=== PATIENT | female | born 1980 | race Two or more races ===

== ENCOUNTER 2019-10-06 17:46 | Emergency (ER) | payer SELFPAY ==
--- NOTE | 2019-10-06 17:58 | ER Document Report ---
ED Medical Screen (RME) - General Chief Complaint: Vomiting Stated Complaint: VOMITING Time Seen by Provider: 10/06/19 17:53 Mode of Arrival: Wheelchair Information source: Patient Notes: 38-year-old female presented to ED for complaint of upper abdominal pain nausea and vomiting. Her son states that she has been vomiting constantly for the last hour. She states that everything she is eaten today is come back up. She states the only thing she had to eat today as beans and rice nothing spicy. She states she did have some abdominal pain and feeling hot yesterday. She states she does not smoke drink or use any alcohol. She is alert and oriented but is in a lot of pain with dry heaves at this time. She is also been having some diarrhea 3-4 stools today. I have greeted and performed a rapid initial assessment of this patient. A comprehensive ED assessment and evaluation of the patient, analysis of test results and completion of medical decision making process will be conducted by an additional ED providers. Physical Exam - Vital signs Vitals: Temp Pulse Resp BP Pulse Ox 98 F 89 24 H 149/76 H 100 10/06/19 17:50 10/06/19 17:50 10/06/19 17:50 10/06/19 17:50 10/06/19 17:50 Course - Vital Signs Vital signs: Temp Pulse Resp BP Pulse Ox 98 F 89 24 H 149/76 H 100 10/06/19 17:50 10/06/19 17:50 10/06/19 17:50 10/06/19 17:50 10/06/19 17:50
[2019-10-06] MEDS ORDERED: MORPHINE SULFATE 10 MG/ML INJ IV ONE (17:59)
[2019-10-06] MEDS ORDERED: NORMAL SALINE 1000 ML 1,000 ML IV ONE (17:59)
[2019-10-06] MEDS ORDERED: ONDANSETRON HCL INJ/PF 4 MG/2 ML SDV IV ONE (17:59)
--- NOTE | 2019-10-06 18:09 | ER Document Report ---
ED General - General Chief Complaint: Abdominal Pain Stated Complaint: VOMITING Time Seen by Provider: 10/06/19 17:53 Primary Care Provider: CODIE GRIFFITHS MD [Primary Care Provider] - Follow up as needed Mode of Arrival: Wheelchair Information source: Patient, Relative TRAVEL OUTSIDE OF THE [place] IN LAST 30 DAYS: No - HPI Onset: Other - patient has had abdominal pains for a month but the pain worsened in the last 2 days and is now associated with nausea and vomiting. Onset/Duration: Gradual Quality of pain: Sharp Severity: Severe Pain Level: 5 Associated symptoms: Diarrhea, Nausea, Vomiting Exacerbated by: Food Relieved by: Denies Similar symptoms previously: No Recently seen / treated by doctor: No Notes: 38 year old female with no significant PMH here for abdominal pain, nausea, vomiting, and diarrhea. The patient has been having abdominal pains for about a month but the pains dramatically worsened over the last 2 days and were associated with nausea, vomiting, and diarrhea today. The patient has not seen a doctor in some time and she has never had an abdominal surgery. The patient denies urinary and vaginal symptoms. - Related Data Allergies/Adverse Reactions: No Known Allergies Allergy (Verified 10/06/19 17:55) Home Medications: vitamins. cholesterol. anemia Past Medical History - General Information source: Patient - Social History Smoking Status: Never Smoker Chew tobacco use (# tins/day): No Frequency of alcohol use: None Drug Abuse: None Lives with: Family Family History: Reviewed & Not Pertinent Patient has suicidal ideation: No Patient has homicidal ideation: No Review of Systems - Review of Systems Constitutional: No symptoms reported EENT: No symptoms reported Cardiovascular: No symptoms reported Gastrointestinal: Abdominal pain, Diarrhea, Nausea, Vomiting Genitourinary: No symptoms reported Female Genitourinary: No symptoms reported Musculoskeletal: No symptoms reported Skin: No symptoms reported Hematologic/Lymphatic: No symptoms reported Neurological/Psychological: No symptoms reported -: Yes All other systems reviewed and negative Physical Exam - Vital signs Vitals: Temp Pulse Resp BP Pulse Ox 98 F 89 24 H 149/76 H 100 10/06/19 17:50 10/06/19 17:50 10/06/19 17:50 10/06/19 17:50 10/06/19 17:50 - Notes Notes: GENERAL: ill-appearing and in moderate distress, well-nourished HEAD: Atraumatic, normocephalic. EYES: Pupils equal round and reactive to light, extraocular movements intact, sclera anicteric, conjunctiva are normal. ENT: Nares patent, oropharynx clear without exudates. Moist mucous membranes. NECK: Normal range of motion, supple without lymphadenopathy or JVD. LUNGS: Breath sounds clear to auscultation bilaterally and equal. No wheezes rales or rhonchi. HEART: Regular rate and rhythm without murmurs, rubs or gallops. ABDOMEN: Soft, moderate tenderness throughout but worse in RLQ, normoactive bow el sounds. No guarding, no rebound. No masses appreciated. EXTREMITIES: Normal range of motion, no pitting or edema. No clubbing or cyanosis. NEUROLOGICAL: Cranial nerves II through XII grossly intact. Normal speech, normal gait. PSYCH: Normal mood, normal affect. SKIN: Warm, Dry, normal turgor, no rashes or lesions noted. Course - Re-evaluation Re-evalutation: 10/06/19 20:16 The patient is here for abdominal pain, nausea, vomiting. The patient was treated with fluids, zofran, morphine, dilaudid, toradol. CT scan consistent with a diarrheal illness. Patient likely has a viral syndrome. Will DC on Zofran and [place] and have the patient follow up with a PCP. Strict ER return instructions given if patient worsens. - Vital Signs Vital signs: Temp Pulse Resp BP Pulse Ox 98.3 F 89 20 122/61 100 10/06/19 20:14 10/06/19 20:14 10/06/19 20:14 10/06/19 20:14 10/06/19 20:14 - Laboratory Result Diagrams: 10/06/19 18:27 10/06/19 18:27 Laboratory results interpreted by me: 10/06/19 10/06/19 10/06/19 18:27 18:27 19:10 WBC 14.1 H RDW 14.5 H Lymph % (Auto) 6.8 L Absolute Neuts (auto) 12.2 H Seg Neutrophils % 87.0 H Calcium 10.4 H Total Protein 8.6 H Albumin 5.2 H Urine Protein 100 H Urine Ketones TRACE H Urine Ascorbic Acid 40 H - Diagnostic Test Radiology reviewed: Image reviewed, Reports reviewed Discharge - Discharge Clinical Impression: Diarrhea Qualifiers: Diarrhea type: infectious Qualified Code(s): A09 - Infectious gastroenteritis and colitis, unspecified Abdominal pain Qualifiers: Abdominal location: generalized Qualified Code(s): R10.84 - Generalized abdominal pain Condition: Stable Disposition: HOME, SELF-CARE Instructions: Abdominal Pain ([facility]), Diarrhea, Nonspecific ([facility]) Additional Instructions: Use Zofran as needed for nausea. Use over the counter generic Tylenol and Motrin for pain. Use the prescribed [place] for pain not controlled with over the counter medications. Drink plenty of fluids in the days to come. Eat a bland diet until symptoms pass. If you diarrhea persists for over a week, bring a sample with you to a primary care doctor's office for stool testing. Prescriptions: Hydrocodone/Acetaminophen [[place] 10-325 Tablet] 1 each PO Q6H #10 tablet Ondansetron [Zofran Odt 4 mg Tablet] 1 tab PO Q8H PRN #15 tab.rapdis PRN Reason: For Nausea/Vomiting Referrals: CODIE GRIFFITHS MD [Primary Care Provider] - Follow up as needed
[2019-10-06 18:54] LABS: ABSOLUTE EOSINOPHILS # (AUTO) 0.1 10^3/uL (0.0-0.6); ABSOLUTE MONOCYTES (AUTO) 0.8 10^3/uL (0.1-1.4); ABSOLUTE NEUT (AUTO) 12.2 10^3/uL (1.7-8.2); BASOPHILS % (AUTO) 0.3 % (0-2); EOSINOPHILS % (AUTO) 0.5 % (0-6); HEMATOCRIT 36.9 % (36.0-47.0); HEMOGLOBIN 12.8 g/dL (12.0-15.5); LYMPHOCYTES % (AUTO) 6.8 % (13-45); MEAN CORPUSCULAR HEMOGLOBIN 29.1 pg (27.0-33.4); MEAN CORPUSCULAR HGB CONC 34.6 g/dL (32.0-36.0); MEAN CORPUSCULAR VOLUME 84 fl (80-97); MONOCYTES % (AUTO) 5.4 % (3-13); PLATELET COUNT 346 10^3/uL (150-450); RED BLOOD COUNT 4.38 10^6/uL (3.72-5.28); RED CELL DISTRIBUTION WIDTH 14.5 % (11.5-14.0); TOTAL CELLS COUNTED % (AUTO) 100 %; WHITE BLOOD COUNT 14.1 10^3/uL (4.0-10.5)
[2019-10-06 19:23] LABS: ALBUMIN 5.2 g/dL (3.5-5.0); ALKALINE PHOSPHATASE 87 U/L (38-126); ANION GAP 14 (5-19); ASPARTATE AMINO TRANSFERASE 35 U/L (14-36); BILIRUBIN,TOTAL 0.9 mg/dL (0.2-1.3); BLOOD UREA NITROGEN 14 mg/dL (7-20); CALCIUM 10.4 mg/dL (8.4-10.2); CARBON DIOXIDE 22 mmol/L (22-30); CHLORIDE 105 mmol/L (98-107); GLUCOSE 110 mg/dL (75-110); POTASSIUM 4.5 mmol/L (3.6-5.0); TOTAL PROTEIN 8.6 g/dL (6.3-8.2)
[2019-10-06] MEDS ORDERED: HYDROMORPHONE HCL INJ/PF 2 MG/ML AMPULE IV PRN (19:28)
[2019-10-06 19:50] LABS: APPEARANCE,URINE SLIGHTLY-CLOUDY; BILIRUBIN,URINE NEGATIVE (NEGATIVE); GLUCOSE, URINE NEGATIVE (NEGATIVE); KETONES,URINE TRACE mg/dL (NEGATIVE); PROTEIN,URINE 100 mg/dL (NEGATIVE); URINE SPECIFIC GRAVITY 1.033; UROBILINOGEN,URINE NEGATIVE mg/dL (<2.0)
[2019-10-06 19:53] LABS: COLOR,URINE YELLOW
[2019-10-06] MEDS ORDERED: KETOROLAC TROMETHAMINE INJ/PF 30 MG/1 ML SDV IV ONE (20:15)
--- NOTE | 2019-10-06 20:27 | RADIOLOGY REPORT (SQ) ---
EXAM DESCRIPTION: CT ABDOMEN PELVIS WITH IV CONTRAST COMPLETED DATE/TME: 10/06/2019 18:18 CLINICAL HISTORY: 38 years, Female, eval for appendicitis or other cause of pain COMPARISON: None. TECHNIQUE: Contrast enhanced CT of the abdomen/pelvis was acquired. Images were obtained after the uneventful administration of 72 mL of Omnipaque 350 intravenous contrast. Images stored on PACS. All CT scanners at this facility use dose modulation, iterative reconstruction, and/or weight based dosing when appropriate to reduce radiation dose to as low as reasonably achievable (ALARA). [facility]: Dose Right [facility]: CareDose [facility]: Dose Right [facility]: Teradose 4D [facility]: [email or web address] LIMITATIONS: None. FINDINGS: Limited evaluation of the lower chest reveals clear lung bases. The liver, spleen, pancreas, gallbladder, and both adrenal glands appear normal. Both kidneys enhance symmetrically. No hydronephrosis or hydroureter. The urinary bladder is partially collapsed, thus its evaluation is limited. A lobulated soft tissue density appears to emanate from the superior aspect of the uterine fundus, best visualized on image 34 of series 601, most likely indicating a fundal fibroid. The colon appears diffusely fluid-filled. However, no significant wall thickening is noted. Appendix is not clearly visualized. However, no pericecal inflammatory changes are appreciated. Small fat-containing umbilical hernia is noted. Vascular structures opacify with contrast normally. No suspicious lymphadenopathy or drainable fluid collections are appreciated. Bone windows show no destructive osseous lesions. IMPRESSION: Diffusely fluid-filled colon without significant wall thickening. Correlate for diarrhea. Fibroid uterus. TECHNICAL DOCUMENTATION: Quality ID # [id number]: Final reports with documentation of one or more dose reduction techniques (e.g., Automated exposure control, adjustment of the mA and/or kV according to patient size, use of iterative reconstruction technique) copyright 2010 [employer]- All Rights Reserved
[2019-10-06 20:51] VITALS: BP 119/65
== END 2019-10-06 20:59 | disposition home or self-care (01) ==
LOC: ER 17:46
DX: A09 Infectious gastroenteritis and colitis, unspecified (principal); R10.84 Generalized abdominal pain; R10.817 Generalized abdominal tenderness; R11.2 Nausea with vomiting, unspecified; Z79.899 Other long term (current) drug therapy
CPT/HCPCS: 99284; 96361; 96374; 96375; 36415; 84702; 83690; 84703; 85025; 80053; 81001; 74177; J1885; J2270; J1170; J2405; J7030